=== PATIENT | male | born 1965 | race African-American/Black ===

== ENCOUNTER 2019-09-17 10:44 | Emergency (ER) | payer OTHER ==
[~2019-09-17] VITALS: Ht 170.2 cm; Wt 67.0 kg
[~2019-09-17 10:44] MED LIST: IBUPROFEN; METHIMAZOLE; PROPRANOLOL; SUMATRIPTAN
[2019-09-17 11:28] VITALS: BP 122/78
== END 2019-09-17 11:29 | disposition home or self-care (01) ==
LOC: ER 10:44
DX: L23.9 Allergic contact dermatitis, unspecified cause (principal); E05.90 Thyrotoxicosis, unspecified without thyrotoxic crisis or storm; G43.909 Migraine, unspecified, not intractable, without status migrainosus
CPT/HCPCS: 99282; 99283

== ENCOUNTER 2020-05-30 09:29 | Emergency (ER) | payer OTHER ==
[~2020-05-30] VITALS: Ht 170.2 cm; Wt 68.0 kg
[2020-05-30] MEDS ORDERED: MORPHINE SULFATE 4 MG/ML CPJ (NOT FOR IM USE) IV STA (10:09)
[2020-05-30] MEDS ORDERED: VISCOUS LIDOCAINE 2% 15 ML UDC PO ONE (10:15)
[2020-05-30] MEDS ORDERED: MAGNESIUM/ALUMINUM HYDROXIDE/SIMETHICONE 30ML UDC PO ONE (10:15)
[2020-05-30] MEDS ORDERED: DICYCLOMINE 10 MG/5 ML ORAL SYR PO ONE (10:15)
[2020-05-30 10:34] LABS: BASOPHILS % 1.3 % (0.0-2.0); EOSINOPHILS % 0.6 % (0.0-5.0); HEMATOCRIT. 43.6 % (42.0-52.0); HEMOGLOBIN. 14.4 g/dL (14.0-18.0); LYMPHOCYTES % 37.1 % (20.0-50.0); MEAN CORPUSCULAR HEMOGLOBIN 29.9 pg (28.0-32.0); MEAN CORPUSCULAR VOLUME 90.8 fL (80.0-94.0); MEAN PLATELET VOLUME 7.4 fl (7.4-10.4); PLATELET 358 x1000/uL (130-400); RED BLOOD CELL COUNT 4.81 mill/uL (4.7-6.1); RED CELL DISTRIBUTION WIDTH 14.1 % (11.6-14.6)
[2020-05-30 10:40] LABS: CHLORIDE 105 mEq/L (98-107)
[2020-05-30 15:00] VITALS: BP 126/82
== END 2020-05-30 15:15 | disposition home or self-care (01) ==
LOC: ER 09:29
DX: R07.89 Other chest pain (principal); F12.10 Cannabis abuse, uncomplicated; Z86.39 Personal history of other endocrine, nutritional and metabolic disease; Z86.69 Personal history of other diseases of the nervous system and sense organs
CPT/HCPCS: 36415; 71045; 80053; 83690; 83880; 84484; 85025; 93005; 96374; 99285; J2270; Z7610